=== PATIENT | male | born 1985 | race Caucasian/White ===

== ENCOUNTER 2022-06-19 08:44 | Emergency (ER) | payer BC ==
[2022-06-19] MEDS ORDERED: Ketorolac 30 MG/ML SDV IM ONE (09:29)
[2022-06-19] MEDS ORDERED: Gabapentin 600 MG Tab PO ONE (09:31)
[2022-06-20] MEDS ORDERED: Gabapentin 600 MG Tab PO ONE (09:31)
== END 2022-06-19 11:40 | disposition home or self-care (01) ==
LOC: JD.ED 08:44
DX: M54.40 Lumbago with sciatica, unspecified side (principal); F17.210 Nicotine dependence, cigarettes, uncomplicated; Z88.8 Allergy status to other drugs, medicaments and biological substances
CPT/HCPCS: 36415; 72100; 80053; 81003; 85025; 96372; 99283; A9270; J1885

== ENCOUNTER 2022-10-08 15:14 | Emergency (ER) | payer BC ==
[2022-10-08 17:10] LABS: HEMATOCRIT 44.4 % (40.1-51.0); HEMOGLOBIN 14.9 gm/dl (13.7-17.5); MEAN CORPUSCULAR HEMOGLOBIN 30.2 pg (25.7-32.2); MEAN CORPUSCULAR HGB CONC 33.6 g/dl (32.2-35.5); MEAN CORPUSCULAR VOLUME 89.9 fl (79.0-92.2); MEAN PLATELET VOLUME 9.4 fl (9.4-12.3); PLATELET COUNT,PLT 289 K/mm3 (163-337); RED BLOOD CELL COUNT 4.94 M/mm3 (4.63-6.08); WHITE BLOOD CELL COUNT,WBC 12.12 K/mm3 (4.23-9.07)
[2022-10-08 17:31] LABS: A/G RATIO 1.1 (1-2); ALANINE AMINOTRANSFERASE,ALT 40 U/L (16-63); ALBUMIN 3.6 g/dl (3.4-5.0); ALKALINE PHOSPHATASE 97 U/L (46-116); ANION GAP 11.9 (5-15); ASPARTATE AMNIOTRANSFERASE,AST 24 U/L (15-37); BILIRUBIN TOTAL 0.3 mg/dL (0.2-1.0); BLOOD UREA NITROGEN,BUN 10 mg/dL (7-18); C-REACTIVE PROTEIN <0.2 mg/dL (<1.0); CALCIUM 8.4 mg/dL (8.5-10.1); CARBON DIOXIDE,CO2 26 mEq/L (21-32); CHLORIDE,CL 106 mEq/L (98-107); EST CRCL DRUG DOSING (CG) 143.35 mL/min; ESTIMATED GFR 101 mL/min (>60); GLUCOSE RANDOM 99 mg/dL (70-99); POTASSIUM,K 3.9 mEq/L (3.5-5.1); SODIUM,NA 140 mEq/L (136-145)
[2022-10-08 17:44] LABS: BAND PERCENT MAN 0 % (0-10); BASOPHILS PERCENT MAN 0 (0.2-1.2); EOSINOPHILS PERCENT MAN 5 % (0.8-7.0); LYMPHOCYTES % ATYPICAL MANUAL 0 %; LYMPHOCYTES PERCENT MAN 22 % (20-40); MONOCYTES PERCENT MAN 7 % (2-10)
[2022-10-08 17:46] LABS: PLATELET COUNT ESTIMATE ADEQUATE
== END 2022-10-08 18:45 | disposition home or self-care (01) ==
LOC: JD.ED 15:14
DX: M25.461 Effusion, right knee (principal); Z88.8 Allergy status to other drugs, medicaments and biological substances
CPT/HCPCS: 36415; 73562-26-RT; 73562-RT; 80053; 85007; 85027; 85652; 86140; 99283